=== PATIENT | male | born 1965 | race American Indian/Alaskan Native ===

== ENCOUNTER 2021-05-31 20:59 | Emergency (ER) | payer MEDICAID ==
[2021-05-31] MEDS ORDERED: KETOROLAC 30 MG/1 ML INJ IM ONE (21:59)
--- NOTE | 2021-05-31 22:00 | Emergency Department Report ---
HPI - General Chief Complaint: Skin/Abscess/Foreign Body Time Seen by Provider: 05/31/21 21:52 - HPI HPI: 55-year-old -[place] male presents to the emergency department with complaint of some pain and swelling to the right groin that he first noticed this morning. He says that the pain comes and goes but when it occurs it is very sharp, intense, and radiates up into the abdomen. Patient says that he has a recent right-sided scrotal "boil" that busted and was draining. He says that this occurred a few days ago and has been getting better. He denies any past medical history. He denies any fever, dysuria, penile discharge, constipation, diarrhea, rectal bleeding. No recent travel or sick contacts at home. ED Past Medical Hx - Past Medical History Previous Medical History?: No - Surgical History Past Surgical History?: Yes Additional Surgical History: DENTAL - Medications Home Medications: Home Medications Medication Instructions Recorded Confirmed Last Taken Type Ibuprofen [Motrin 600 MG tab] 600 mg PO Q8H PRN #20 tablet 05/31/21 Unknown Rx Sulfamethoxazole/Trimethoprim 1 each PO BID #14 tab 05/31/21 Unknown Rx [Bactrim DS TAB] ED Review of Systems ROS: Stated complaint: ABSCESS Other details as noted in HPI Comment: All other systems reviewed and negative Constitutional: denies: chills, fever Eyes: denies: eye pain, vision change ENT: denies: ear pain, throat pain Respiratory: denies: cough, shortness of breath Cardiovascular: denies: chest pain, palpitations Gastrointestinal: denies: nausea, vomiting Genitourinary: other (Right groin pain and swelling). denies: dysuria, discharge Musculoskeletal: denies: back pain, arthralgia Skin: denies: rash, lesions Neurological: denies: headache, weakness Physical Exam - Physical Exam Vital Signs: Vital Signs 05/31/21 21:01 Temperature 98.6 F Pulse Rate 64 Respiratory 18 Rate Blood Pressure 137/78 O2 Sat by Pulse 98 Oximetry Physical Exam: GENERAL: The patient is well-developed well-nourished. HENT: Normocephalic. Atraumatic. Patient has moist mucous membranes. EYES: Extraocular motions are intact. NECK: Supple. Trachea is midline. CHEST/LUNGS: Clear to auscultation. There is no respiratory distress noted. HEART/CARDIOVASCULAR: Regular. There is no tachycardia. There is no murmur. ABDOMEN: Abdomen is soft, nontender. Patient has normal bowel sounds. No guarding. There is no abdominal distention. SKIN: Skin is warm and dry. NEURO: The patient is awake, alert, and oriented. The patient is cooperative. Normal speech. MUSCULOSKELETAL: There is no tenderness or deformity. There is no limitation range of motion. : There is a palpable tender but mobile right inguinal nodule. ED Course Vital Signs 05/31/21 21:01 Temperature 98.6 F Pulse Rate 64 Respiratory 18 Rate Blood Pressure 137/78 O2 Sat by Pulse 98 Oximetry ED Medical Decision Making - Lab Data Result diagrams: 05/31/21 21:59 05/31/21 21:59 Lab Results 05/31/21 05/31/21 Range/Units 21:59 21:59 WBC 3.5 L (4.5-11.0) K/mm3 RBC 4.01 (3.65-5.03) M/mm3 Hgb 11.4 L (11.8-15.2) gm/dl Hct 34.7 L (35.5-45.6) % MCV 87 (84-94) fl MCH 29 (28-32) pg MCHC 33 (32-34) % RDW 14.0 (13.2-15.2) % Plt Count 182 (140-440) K/mm3 Real % (Auto) Panel Raiser Operator Add Manual Diff Complete Total Counted 100 Seg Neuts % (Manual) 80.0 H (40.0-70.0) % Band Neutrophils % 0 % Lymphocytes % (Manual) 7.0 L (13.4-35.0) % Reactive Lymphs % (Man) 0 % Monocytes % (Manual) 12.0 H (0.0-7.3) % Eosinophils % (Manual) 1.0 (0.0-4.3) % Basophils % (Manual) 0 (0.0-1.8) % Metamyelocytes % 0 % Myelocytes % 0 % Promyelocytes % 0 % Blast Cells % 0 % Nucleated RBC % Not Reportable Seg Neutrophils # Man 2.8 (1.8-7.7) K/mm3 Band Neutrophils # 0.0 K/mm3 Lymphocytes # (Manual) 0.2 L (1.2-5.4) K/mm3 Abs React Lymphs (Man) 0.0 K/mm3 Monocytes # (Manual) 0.4 (0.0-0.8) K/mm3 Eosinophils # (Manual) 0.0 (0.0-0.4) K/mm3 Basophils # (Manual) 0.0 (0.0-0.1) K/mm3 Metamyelocytes # 0.0 K/mm3 Myelocytes # 0.0 K/mm3 Promyelocytes # 0.0 K/mm3 Blast Cells # 0.0 K/mm3 WBC Morphology Not Reportable Hypersegmented Neuts Not Reportable Hyposegmented Neuts Not Reportable Hypogranular Neuts Not Reportable Smudge Cells Not Reportable Toxic Granulation Not Reportable Toxic Vacuolation Not Reportable Dohle Bodies Not Reportable Pelger-Huet Anomaly Not Reportable Arun Rods Not Reportable Platelet Estimate Consistent w auto Clumped Platelets Not Reportable Plt Clumps, EDTA Not Reportable Large Platelets Not Reportable Giant Platelets Not Reportable Platelet Satelliting Not Reportable Plt Morphology Comment Not Reportable RBC Morphology Normal Dimorphic RBCs Not Reportable Polychromasia Not Reportable Hypochromasia Not Reportable Poikilocytosis Not Reportable Anisocytosis Not Reportable Microcytosis Not Reportable Macrocytosis Not Reportable Spherocytes Not Reportable Pappenheimer Bodies Not Reportable Sickle Cells Not Reportable Target Cells Not Reportable Tear Drop Cells Not Reportable Ovalocytes Not Reportable Helmet Cells Not Reportable Foreman-Spiritwood Bodies Not Reportable Neola Rings Not Reportable Chester Cells Not Reportable Bite Cells Not Reportable Crenated Cell Not Reportable Elliptocytes Not Reportable Acanthocytes (Spur) Not Reportable Rouleaux Not Reportable Hemoglobin C Crystals Not Reportable Schistocytes Not Reportable Malaria parasites Not Reportable Jono Bodies Not Reportable Hem Pathologist Commnt No Sodium 135 L (137-145) mmol/L Potassium 3.8 (3.6-5.0) mmol/L Chloride 103.5 (98-107) mmol/L Carbon Dioxide 24 (22-30) mmol/L Anion Gap 11 mmol/L BUN 10 (9-20) mg/dL Creatinine 0.7 L (0.8-1.3) mg/dL Estimated GFR > 60 ml/min BUN/Creatinine Ratio 14 % Glucose 90 (75-100) mg/dL Calcium 7.9 L (8.4-10.2) mg/dL - Radiology Data Radiology results: image reviewed interpreted by me: Abdominal x-ray shows nonspecific nonobstructive bowel gas. No free air. - Medical Decision Making This patient presents with some pain and swelling in the right groin. On examination there is a tender but mobile nodule that appears most consistent with lymphadenopathy. It appears less consistent with an inguinal hernia, but even if it was a hernia it does not appear strangulated or incarcerated. Abdominal x-ray does not show any air-fluid levels or signs of abnormal gas patterns. Labs have been unremarkable including CBC and metabolic panel. Abdominal x-ray, with view of the pelvis, does not show any acute process. Vital signs reassuring including being afebrile. Patient was given a prescription for anti-inflammatories and an antibiotic. He will follow-up with primary care and will return to the emergency department with any worsening of symptoms or with any acute distress. Critical Care Time: No Critical care attestation.: If time is entered above; I have spent that time in minutes in the direct care of this critically ill patient, excluding procedure time. ED Disposition Clinical Impression: Inguinal lymphadenopathy, Inguinal lymphadenitis Disposition: HOME / SELF CARE / HOMELESS Is pt being admited?: No Condition: Stable Instructions: Lymphadenopathy Additional Instructions: Please follow-up with your primary care physician in the next few days. Take all medications as prescribed. Return to the emergency department with any worsening of your symptoms, new or concerning symptoms not addressed during this current emergency department visit, or with any acute distress. Prescriptions: Sulfamethoxazole/Trimethoprim [Bactrim DS TAB] 1 each PO BID #14 tab Ibuprofen [Motrin 600 MG tab] 600 mg PO Q8H PRN #20 tablet PRN Reason: Pain Referrals: PRIMARY CAREMD [Primary Care Provider] - 2-3 Days Time of Disposition: 23:51
[2021-05-31 22:31] LABS: Hematocrit 34.7 % (35.5-45.6); Hemoglobin 11.4 gm/dl (11.8-15.2); Mean Corpuscular HGB Conc 33 % (32-34); Mean Corpuscular Volume 87 fl (84-94); Platelet Count 182 K/mm3 (140-440); Red Blood Count 4.01 M/mm3 (3.65-5.03)
[2021-05-31 22:40] LABS: Blood Urea Nitrogen 10 mg/dL (9-20); Calcium 7.9 mg/dL (8.4-10.2); Hemolysis Index 4
--- NOTE | 2021-05-31 23:13 | XRay Report ---
ABDOMEN, 2 VIEW INDICATION / CLINICAL INFORMATION: Abd pain. COMPARISON: None available. FINDINGS: Supine and erect views of the abdomen demonstrate a normal bowel gas pattern. No abnormally dilated l oops of bowel are identified. No free air noted. No abnormal calcification. Visualized osseous structures appear unremarkable. IMPRESSION: No acute finding. Signer Name: Rosamaria Garcias MD Signed: 05/31/2021 11:09 PM Workstation Name: [id number]
[2021-05-31 23:18] LABS: Total Cells Counted 100
[2021-05-31 23:19] LABS: Basophils % (Manual) 0 % (0.0-1.8); Platelet Estimate Consistent w Auto; RBC Morphology Normal
[2021-05-31 23:26] LABS: BUN/Creatinine Ratio 14
[2021-06-01 00:15] VITALS: BP 140/78
== END 2021-06-01 00:09 | disposition home or self-care (01) ==
LOC: ED 20:59
DX: R59.1 Generalized enlarged lymph nodes (principal)
CPT/HCPCS: 36415; 74019; 80048; 85007; 85025; 99283; J1885

== ENCOUNTER 2021-07-25 06:56 | Emergency (ER) | payer SELFPAY ==
--- NOTE | 2021-07-25 08:07 | Emergency Department Report ---
Minor Respiratory - HPI Chief Complaint: Upper Respiratory Infection Stated Complaint: HEAD/CHEST PAIN FROM COUGHING Time Seen by Provider: 07/25/21 07:50 Duration: 3 Days Pain Location: Chest Severity: mild Minor Respiratory: Yes Able to Tolerate Fluids, Yes Cough, No Rhinorrhea, No Sore Throat, No Ear Pain, No Sick Contacts, No Hemoptysis, No Chest Pain, No Shortness of Breath, No Fever Other History: 55 yo HIV pos male comes to ER with cough. No sob. No cp x with cough. No sputum. Denies fever or chills. Ambulatory to triage in [facility] ED Review of Systems ROS: Stated complaint: HEAD/CHEST PAIN FROM COUGHING Other details as noted in HPI Comment: All other systems reviewed and negative ED Past Medical Hx - Past Medical History Previous Medical History?: Yes Hx HIV: Yes - Surgical History Past Surgical History?: Yes Additional Surgical History: DENTAL - Family History Family history: no significant - Social History Smoking Status: Never Smoker Substance Use Type: None - Medications Home Medications: Home Medications Medication Instructions Recorded Confirmed Last Taken Type Ibuprofen [Motrin 600 MG tab] 600 mg PO Q8H PRN #20 tablet 05/31/21 Unknown Rx Sulfamethoxazole/Trimethoprim 1 each PO BID #14 tab 07/25/21 Unknown Rx [Bactrim DS TAB] Minor Respiratory Exam - Exam General: Vital signs noted. No distress. Alert and acting appropriately. HEENT: Yes Moist Mucous Membranes, No Pharyngeal Erythema, No Pharyngeal Exudates, No Rhinorrhea, No Conjuctival Injection, No Frontal Tenderness, No Maxillary Tenderness Ear: Neither TM Bulge, Neither TM Erythema, Neither EAC Pain, Neither EAC Discharge Neck: Yes Supple, No Adenopathy Lungs: Yes Good Air Exchange, No Wheezes, No Ronchi, No Stridor, No Cough, No Labored Respirations, No Retractions, No Use of Accessory Muscles, No Other Abnormal Lung Sounds Heart: Yes Regular, No Murmur Abdomen: Yes Normal Bowel Sounds, No Tenderness, No Peritoneal Signs Skin: No Rash, No Edema Neurologic: Alert and oriented, no deficits. Musculoskeletal: Unremarkable. ED Course Vital Signs 07/25/21 07:21 Temperature 98.5 F Pulse Rate 79 Respiratory 16 Rate Blood Pressure 121/74 [Left] O2 Sat by Pulse 96 Oximetry - Reevaluation(s) Reevaluation #1: 07/25/21 08:07 on antivirals last cd4 2 m ago was ok per pts ID ED Medical Decision Making - Lab Data Result diagrams: 07/25/21 08:39 07/25/21 08:39 - EKG Data -: EKG Interpreted by Me EKG shows normal: sinus rhythm Rate: normal - EKG Data When compared to previous EKG there are: no significant change Interpretation: no acute changes - Radiology Data Radiology results: report reviewed, image reviewed see report - Medical Decision Making Lab Results 07/25/21 07/25/21 Range/Units 08:39 08:39 WBC 2.5 L (4.5-11.0) K/mm3 RBC 3.85 (3.65-5.03) M/mm3 Hgb 10.3 L (11.8-15.2) gm/dl Hct 31.4 L (35.5-45.6) % MCV 81 L (84-94) fl MCH 27 L (28-32) pg MCHC 33 (32-34) % RDW 14.7 (13.2-15.2) % Plt Count 153 (140-440) K/mm3 [place] % (Auto) [employer] Sodium 132 L (137-145) mmol/L Potassium 4.4 (3.6-5.0) mmol/L Chloride 98.9 (98-107) mmol/L Carbon Dioxide 24 (22-30) mmol/L Anion Gap 14 mmol/L BUN 17 (9-20) mg/dL Creatinine 0.9 (0.8-1.3) mg/dL Estimated GFR > 60 ml/min BUN/Creatinine Ratio 19 % Glucose 98 (75-100) mg/dL Calcium 8.0 L (8.4-10.2) mg/dL Total Bilirubin 0.40 (0.1-1.2) mg/dL AST 119 H (5-40) units/L ALT 45 (7-56) units/L Alkaline Phosphatase 72 (35-129) units/L Troponin T < 0.010 (0.00-0.029) ng/mL Total Protein 10.2 H (6.3-8.2) g/dL Albumin 2.7 L (3.9-5) g/dL Albumin/Globulin Ratio 0.4 % Vital Signs 07/25/21 07:21 Temperature 98.5 F Pulse Rate 79 Respiratory 16 Rate Blood Pressure 121/74 [Left] O2 Sat by Pulse 96 Oximetry labs noted- baseline per emr review xray noted duoneb given in ER dc home with dc plan of care including rx/diet/activity/meds/follow up. He verbalizes understanding of plan of care. - Differential Diagnosis ro pna Critical care attestation.: If time is entered above; I have spent that time in minutes in the direct care of this critically ill patient, excluding procedure time. ED Disposition Clinical Impression: Hx of human immunodeficiency virus infection URI (upper respiratory infection) Qualifiers: URI type: unspecified viral URI Qualified Code(s): J06.9 - Acute upper respiratory infection, unspecified Disposition: 01 HOME / SELF CARE / HOMELESS Is pt being admited?: No Does the pt Need Aspirin: No Condition: Stable Instructions: Viral Respiratory Infection, [id number] Additional Instructions: meds as ordered today follow up with pcp in 48 hours for recheck referral below stay well hydrated continue home meds Prescriptions: Sulfamethoxazole/Trimethoprim [Bactrim DS TAB] 1 each PO BID #14 tab Referrals: PRIMARY MD SMOOTH [Primary Care Provider] - 3-5 Days CIRILO VELEZ MD [Staff Physician] - 3-5 Days Time of Disposition: 08:07
--- NOTE | 2021-07-25 08:41 | XRay Report ---
CHEST 2 VIEWS INDICATION: cough. COMPARISON: None. FINDINGS: Support devices: None. Heart: Within normal limits. Lungs/Pleura: Mild interstitial thickening is seen diffusely. No significant pleural effusion. IMPRESSION: Mild interstitial thickening is favored to be chronic. Signer Name: Angel Turner MD Signed: 07/25/2021 8:37 AM Workstation Name: [id number]
[2021-07-25] MEDS ORDERED: IPRATROPIUM/ALBUTEROL SULFATE 3 ML AMPUL.NEB IH ONE (08:43)
[2021-07-25 09:27] LABS: Hematocrit 31.4 % (35.5-45.6); Hemoglobin 10.3 gm/dl (11.8-15.2); Mean Corpuscular HGB Conc 33 % (32-34); Mean Corpuscular Volume 81 fl (84-94); Platelet Count 153 K/mm3 (140-440); Red Blood Count 3.85 M/mm3 (3.65-5.03); Red Cell Distribution Width 14.7 % (13.2-15.2)
[2021-07-25 09:41] LABS: Alanine Aminotransferase 45 units/L (7-56); Albumin 2.7 g/dL (3.9-5); BUN/Creatinine Ratio 19; Blood Urea Nitrogen 17 mg/dL (9-20); Hemolysis Index 7
[2021-07-25 10:16] VITALS: BP 100/65
[2021-07-25 10:27] LABS: Basophils % (Manual) 0 % (0.0-1.8); Total Cells Counted 100
[2021-07-25 10:28] LABS: Anisocytosis 1+; Platelet Estimate Consistent w Auto
--- NOTE | 2021-07-26 13:21 | Electrocardiograph Report ---
[facility] Test Date: 2021-07-25 Test Time: 08:17:58 Pat Name: MARIA DYE Department: Room: Gender: M Track Helper: ADRYAN : 1965 Requested By: AISHA BENEDICT Order Number: [id number] Reading MD: Radha Allen Measurements Intervals [place] Rate: 78 P: -25 CA: 168 QRS: 63 QRSD: 84 T: 61 QT: 374 QTc: 427 Interpretive Statements Sinus rhythm No previous ECG available for comparison Electronically Signed On 07-26-2021 13:20:58 EST by Radha Allen
== END 2021-07-25 10:16 | disposition home or self-care (01) ==
LOC: ED 06:56
DX: J06.9 Acute upper respiratory infection, unspecified (principal); Z21 Asymptomatic human immunodeficiency virus [HIV] infection status; Z98.890 Other specified postprocedural states
CPT/HCPCS: 36415; 71046; 80053; 84484; 85007; 85025; 93005; 93010; 94640; 94644; 99284

== ENCOUNTER 2021-10-01 20:19 | Emergency (ER) | payer SELFPAY | END 2021-10-01 20:25 | disposition left against medical advice (07) | LOC: ED 20:19 | DX: R07.89 Other chest pain (principal); Z53.21 Procedure and treatment not carried out due to patient leaving prior to being seen by health care provider ==